=== PATIENT | female | born 1965 | race Caucasian/White ===

== ENCOUNTER 2024-05-24 18:04 | Emergency (ER) | payer OTHER, SELFPAY ==
[2024-05-24 18:10] VITALS: BP 135/97; PULSE 90; TEMP 36.7; O2SAT 95; BMI 38.0
--- NOTE | 2024-05-24 18:22 | XRR_ITS ---
PROCEDURE INFORMATION: Exam: XR Right Shoulder Exam date and time: 05/24/2024 6:49 PM Age: 58 years old Clinical indication: Injury or trauma; Fall; Blunt trauma (contusions or hematomas); Shoulder; Right; Additional info: Fall, shoulder pain TECHNIQUE: Imaging protocol: Radiologic exam of the right shoulder. Views: 2 or more views. COMPARISON: No relevant prior studies available. FINDINGS: Bones/joints: Normal. Soft tissues: Normal. XR/XR shoulder RT min 2V* [id number] IMPRESSION: No acute findings.
--- NOTE | 2024-05-24 18:22 | CTR_ITS ---
PROCEDURE INFORMATION: Exam: CT Head Without Contrast Exam date and time: 05/24/2024 6:47 PM Age: 58 years old Clinical indication: Injury or trauma; Fall; Blunt trauma (contusions or hematomas); Additional info: Fall, head injury TECHNIQUE: Imaging protocol: Computed tomography of the head without contrast. Radiation optimization: All CT scans at this facility use at least one of these dose optimization techniques: automated exposure control; mA and/or kV adjustment per patient size (includes targeted exams where dose is matched to clinical indication); or iterative reconstruction. COMPARISON: No relevant prior studies available. RADIATION DOSE METRICS: Total DLP (mGy-cm): 969.26 FINDINGS: Brain: Normal. No hemorrhage. Mild periventricular white matter changes on the basis of chronic microvascular ischemic changes. No mass effect. Cerebral ventricles: No ventriculomegaly. Paranasal sinuses: Visualized sinuses are unremarkable. No fluid levels. Mastoid air cells: Visualized mastoid air cells are well aerated. Bones: Unremarkable. No acute fracture. Soft tissues: Unremarkable. CT/CT head wo con* [id number] IMPRESSION: No acute intracranial abnormality.
--- NOTE | 2024-05-24 18:26 | W.ED.FALL ---
Documented by User: Thao Yarbrough MD 05/24/24 19:25 HPI - Fall General: Chief Complaint: Fall Stated Complaint: Fall Cut on Forehead Time Seen by Provider: 05/24/24 18:17 History of Present Illness: 58-year-old female who tripped over a dog gate and hit her head against a door and has a laceration on her forehead. She also hurt her right shoulder. Hurting in the scapular area. Bleeding is controlled. No loss of consciousness. No altered mental status. No nausea or vomiting. She is not on anticoagulation. Related Data Allergies Allergy/AdvReac Type Severity Reaction Status Date / Time No Known Allergies Allergy Verified 05/24/24 18:16 Review of Systems Narrative: Constitutional symptoms: Negative except as documented in HPI. Skin symptoms: Negative except as documented in HPI. Eye symptoms: Negative except as documented in HPI. ENMT symptoms: Negative except as documented in HPI. Respiratory symptoms: Negative except as documented in HPI. Cardiovascular symptoms: Negative except as documented in HPI. Gastrointestinal symptoms: Negative except as documented in HPI. Genitourinary symptoms: Negative except as documented in HPI. Musculoskeletal symptoms: Negative except as documented in HPI. Neurologic symptoms: Negative except as documented in HPI. Psychiatric symptoms: Negative except as documented in HPI. Endocrine symptoms: Negative except as documented in HPI. Physical Exam Narrative: EXAM NARRATIVE: General: Alert, no acute distress. Skin: Warm, dry. Head: Normocephalic, 1 cm laceration in the central forehead between eyebrows running horizontally. About 1 cm. Bleeding controlled. Neck: Supple, trachea midline. Eye: Extraocular movements are intact. Ears, nose, mouth and throat: mucosa moist. Cardiovascular: Regular, Normal peripheral perfusion. Respiratory: Lungs are clear to auscultation, respirations are non-labored, breath sounds are equal, Symmetrical chest wall expansion. Gastrointestinal: Soft, Nontender, Non distended Musculoskeletal: No obvious deformity. Some limitation of range of motion secondary to pain in the right shoulder. Neurological: Alert and oriented, No focal neurological deficit observed. Psychiatric: Cooperative, appropriate mood & affect. Course Vital Signs: Vital signs: Vital Signs Temperature 98.0 F 05/24/24 18:10 Pulse Rate 90 05/24/24 18:10 Blood Pressure 135/97 05/24/24 18:10 Pulse Oximetry 95 05/24/24 18:10 Oxygen Delivery Me thod Room Air 05/24/24 18:10 MDM - Fall Medical Decision Making CT head: No acute intracranial process. no intracranial hemorrhage, no evidence of infarct. no evidence of acute fracture.films were interpreted by myself the emergency room provider and pending final radiology review. Shoulder x-ray: No acute fractures or dislocations. Films were interpreted by myself the emergency room provider and pending final radiology review. 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 - Discharged home - Discussed plan with patient. Answered any questions. - Evaluation and treatment of this problem were appropriate in the emergency setting. XR interpretation done by ED provider, pending radiology final review Discharge Plan Discharge Patient Disposition: Home Clinical Impression: Laceration of forehead, Fall, Head injury, Right shoulder injury Condition: Stable Discharge Orders: Discharge ED (Routine); Ordered 05/24/24 Ordered By: Thao Yarbrough Referrals: James Rodriguez MD [Primary Care Provider] - Discharge Diet: Usual diet Discharge Activity: Increase activity as tolerated Patient Instructions: Care For Your Stitches (ED), Opioid Safety, Pain Management Activity Restrictions/Additional Instructions: Keep the area clean and dry, wash twice per day with antibacterial soap and water. Return to your primary provider or the emergency room in 7 days for suture removal. Avoid any prolonged submersion in water. Avoid all quarles water, pond water, streams or other untreated water. Thank you for choosing [facility] for your healthcare needs today. Please realize this is an emergency room and that we are providing you with a medical screening exam and this may not be complete and all inclusive of all the testing and or work up that you may need to determine your ailment or severity of your illness. You have been screened and evaluated and felt safe for discharge. Health conditions do change or evolve sometimes and as such it is important that you follow up with your Primary Doctor to be re checked, 3-5 days is a general good time frame for follow up. You are always welcome to return to the ED for re assessment if your symptoms are worsening or you have new concerns Print Language: Monegasque Coding Level of Care Code ED Warehouse Engineer for Chg Fwd Documented by User: ARTURO Vazquez 05/24/24 19:19 HPI - Fall General: Chief Complaint: Fall Stated Complaint: Fall Cut on Forehead Time Seen by Provider: 05/24/24 18:17 Related Data Allergies Allergy/AdvReac Type Severity Reaction Status Date / Time No Known Allergies Allergy Verified 05/24/24 18:16 Procedures Laceration Laceration 1: Site: face Size (cm): 2 Description: linear and clean Depth: simple, single layer Local Anesthetic: lidocaine 1% and with epi Amount of anesthesia used (mL): 2 Pre-repair: wound explored Skin layer closed with: nylon Size (cm): 6-0 Number of sutures: 3 Technique: simple, interrupted Course Vital Signs: Vital signs: Vital Signs Temperature 98.0 F 05/24/24 18:10 Pulse Rate 90 05/24/24 18:10 Blood Pressure 135/97 05/24/24 18:10 Pulse Oximetry 95 05/24/24 18:10 Oxygen Delivery Me thod Room Air 05/24/24 18:10 Discharge Plan Discharge Patient Disposition: Home Clinical Impression: Laceration of forehead, Fall, Head injury, Right shoulder injury Condition: Stable Discharge Orders: Discharge ED (Routine); Ordered 05/24/24 Ordered By: Thao Yarbrough Referrals: James Rodriguez MD [Primary Care Provider] - Discharge Diet: Usual diet Discharge Activity: Increase activity as tolerated Patient Instructions: Care For Your Stitches (ED), Opioid Safety, Pain Management Activity Restrictions/Additional Instructions: Keep the area clean and dry, wash twice per day with antibacterial soap and water. Return to your primary provider or the emergency room in 7 days for suture removal. Avoid any prolonged submersion in water. Avoid all quarles water, pond water, streams or other untreated water. Thank you for choosing [facility] for your healthcare needs today. Please realize this is an emergency room and that we are providing you with a medical screening exam and this may not be complete and all inclusive of all the testing and or work up that you may need to determine your ailment or severity of your illness. You have been screened and evaluated and felt safe for discharge. Health conditions do change or evolve sometimes and as such it is important that you follow up with your Primary Doctor to be re checked, 3-5 days is a general good time frame for follow up. You are always welcome to return to the ED for re assessment if your symptoms are worsening or you have new concerns Print Language: Monegasque Coding Level of Care Code ED Warehouse Engineer for Diego Silva
[2024-05-24] MEDS: lidocaine-epi 1% 20 mL INJ INJECTION (18:31)
[2024-05-24 19:26] VITALS: BP 103/82; PULSE 84; O2SAT 97
== END 2024-05-24 19:26 | disposition home or self-care (01) ==
PROVIDERS: Emergency Provider Emergency Medicine; PCP Family Medicine
DX: S01.01XA Laceration without foreign body of scalp, initial encounter (principal); S09.90XA Unspecified injury of head, initial encounter; S49.91XA Unspecified injury of right shoulder and upper arm, initial encounter; W01.0XXA Fall on same level from slipping, tripping and stumbling without subsequent striking against object, initial encounter
CPT/HCPCS: 70450; 73030; 99284; J9999

== ENCOUNTER 2024-06-29 15:17 | Outpatient (CLI) | payer OTHER, SELFPAY ==
--- NOTE | 2024-06-29 15:20 | MM_ITS ---
WS: [id number] VIEWS: MLO and CC views both breasts. 3D digital tomosynthesis is also included in this exam. Comparison made with prior exam of 05/23/2009. . Findings: The breasts are almost entirely fatty. Questionable 6 mm spiculated nodule identified in the soft tissues along the inferior margin of the RIGHT breast on the MLO view. This may not be within the breast itself but in the chest wall. The RIGHT breast is otherwise unremarkable. The LEFT breast is normal. A cleavage view and exaggerated RIGHT craniocaudal view would be recommended for follow-up. Ultrasound may also be necessary. MM/MM scr BI tomosynthesis [id number] Impression: BI-RADS: 0 - Incomplete: Need additional imaging evaluation. FOLLOW-UP: See Report This mammogram was also analyzed by the Computer Aided Detection System R2 Imag e Foreign Languages Professor.
== END 2024-06-29 15:18 | disposition home or self-care (01) ==
LOC: MOBLMAM 15:19
PROVIDERS: PCP Family Medicine; Visit Provider Family Medicine
DX: Z12.31 Encounter for screening mammogram for malignant neoplasm of breast (principal); R92.313 Mammographic fatty tissue density, bilateral breasts; N63.10 Unspecified lump in the right breast, unspecified quadrant
CPT/HCPCS: 77063; 77067

== ENCOUNTER 2024-07-20 11:12 | Outpatient (CLI) | payer OTHER, SELFPAY ==
--- NOTE | 2024-07-20 11:18 | MM_ITS ---
WS: [id number] VIEWS: MLO, CC, and ML views of the RIGHT breast.. 3D digital tomosynthesis is also included in this exam. Comparison made with prior exam of 06/29/2024.. Findings: The breasts are almost entirely fatty. FINDINGS a 6 mm skin lesion noted near the lateral aspect of the RIGHT inframammary fold is noted. This has benign appearance and apparently represents either a sebaceous cyst or a mole. There were no suspicious findings in this region. Continue yearly screening mammography. MM/MM diag RT tomosynthesis [id number] Impression: BI-RADS: 2 - Benign. FOLLOW-UP: 1 Year Follow-up This mammogram was also analyzed by the Computer Aided Detection System R2 Imag e Hl7 Interface Developer.
== END 2024-07-20 11:13 | disposition home or self-care (01) ==
PROVIDERS: PCP Family Medicine; Visit Provider Family Medicine
DX: R92.8 Other abnormal and inconclusive findings on diagnostic imaging of breast (principal); R92.313 Mammographic fatty tissue density, bilateral breasts; N64.89 Other specified disorders of breast
CPT/HCPCS: 77061; G0279